=== PATIENT | male | born 1955 | race Caucasian/White ===

== ENCOUNTER 2018-10-16 07:02 | Day surgery (SDC) | payer OTHER, BC ==
[2018-10-03 12:54] VITALS: BMI 29.1
[2018-10-16 07:33] VITALS: TEMP 98.2
[2018-10-16] MEDS ORDERED: LIDOCAINE HCL 2% (20ML MULTI-DOSE VIAL) NR ONE (07:36)
[2018-10-16] MEDS ORDERED: LIDOCAINE 1%/EPI 1:100000 (20 ML MULTI DOSE VIAL) ONE (07:47)
[2018-10-16] MEDS ORDERED: SODIUM BICARBONATE 8.4% 50 MEQ/50 ML VIAL ONE (07:47)
--- NOTE | 2018-10-16 12:02 | OP ---
DATE OF OPERATION: 10/16/2018 PREOPERATIVE DIAGNOSIS: Right carpal tunnel syndrome. POSTOPERATIVE DIAGNOSIS: Right carpal tunnel syndrome. OPERATIVE PROCEDURE: Right carpal tunnel release. SURGEON: Sukhwinder Kohler MD ANESTHESIA: Local. COMPLICATIONS: None. ESTIMATED BLOOD LOSS: Minimal. INDICATIONS FOR PROCEDURE: The patient is a 63-year-old male with the above findings, indicated for operative treatment. The risks, benefits, and alternatives were discussed with the patient at length, and proper informed consent was obtained. PROCEDURE: After proper identification of the patient and the correct operative site, the patient was brought to the operating room and placed supine on the operating room table with prominences well padded. Local anesthesia was given 1% lidocaine with epinephrine and sodium bicarbonate. No tourniquet was used. Right upper extremity was prepped and draped in the usual sterile fashion. A longitudinal incision was made over the proximal length of the palm. Incision was taken sharply through the skin with blunt and sharp dissection through subcutaneous tissues. Palmar fascia was divided longitudinally. The transverse carpal ligament was divided longitudinally along with the distal 4 cm of antebrachial fascia under direct visualization with loupe magnification. This provided complete release of the median nerve at the wrist. Wound was repaired with 5-0 nylon suture. Sterile dressings were applied. The patient brought to the recovery room in stable condition. He tolerated the procedure well. SUKHWINDER KOHLER M.D. [id number]
[2018-10-21 07:58] VITALS: BP 118/76; PULSE 70
== END 2018-10-16 09:40 | disposition home or self-care (01) ==
LOC: FASU 07:02
PROVIDERS: ATTEND Orthopaedic Surgery Hand Surgery
PROC: 01N50ZZ Release Median Nerve, Open Approach (ICD-10-PCS; principal; 2018-10-16 08:56)
DX: G56.01 Carpal tunnel syndrome, right upper limb (principal)
CPT/HCPCS: 82962